=== PATIENT | male | born 1960 | race Caucasian/White ===

== ENCOUNTER 2017-10-27 11:24 | Inpatient (IN) | payer MEDICARE, MEDICAID ==
[~2017-10-27] VITALS: Ht 177.8 cm; Wt 84.7 kg
[~2017-10-27 11:24] MED LIST: GABA-533 PO; TIOT185 IH
[2017-10-27 13:26] VITALS: BP 144/84
[2017-10-27] MEDS ORDERED: LORazepam 2 MG TABLET PO PRN (14:00)
[2017-10-27] MEDS ORDERED: OLANZapine 5 MG RAPDIS TABLET PO PRN (14:00)
[2017-10-27] MEDS ORDERED: CYANOCOBALAMIN 1,000 MCG/ML VIAL IM ONE (14:15)
[2017-10-27] MEDS ORDERED: HydrOXYzine PAMOATE 50 MG CAPSULE PO PRN (14:15)
[2017-10-27] MEDS ORDERED: GuaiFENesin/D-METHORPHAN [SUGAR-FREE] 200-20MG/10 ML SYRUP UDCUP PO PRN (14:15)
[2017-10-27] MEDS ORDERED: LOPERAMIDE HCL 2 MG CAPSULE PO PRN (14:15)
[2017-10-27] MEDS ORDERED: PNEUMOCOCCAL VACCINE POLYVALENT 0.5 ML VIAL [PPSV23] IM ONE (15:15)
[2017-10-27] MEDS ORDERED: ALBU8.5H8 IH (15:48)
[2017-10-27] MEDS ORDERED: FOLI1 PO (15:48)
[2017-10-27] MEDS ORDERED: BUDE180H IH (15:48)
[2017-10-27] MEDS ORDERED: TRIL8 PO (15:48)
[2017-10-27] MEDS ORDERED: THIA100T67 PO (15:48)
[2017-10-27] MEDS ORDERED: ATOR10TA84 PO (15:48)
[2017-10-27] MEDS ORDERED: IPRA4AER IH (15:48)
[2017-10-27] MEDS ORDERED: GABA-531 PO (15:58)
[2017-10-27] MEDS ORDERED: ARIP400S3 IM (16:06)
[2017-10-27 16:10] VITALS: BP 124/99
[2017-10-27] MEDS: THIAMINE HCL 100 MG TABLET PO SCH ×2 (16:15→16:47)
[2017-10-27] MEDS: FOLIC ACID 1 MG TABLET PO SCH (16:15)
[2017-10-27] MEDS: MULTIVITAMINS WITH MINERALS, THERAPEUTIC TABLET PO SCH (16:15)
[2017-10-27] MEDS: DIAZEPAM 10 MG TABLET PO PRN ×2 (16:24→20:03)
[2017-10-27 17:00] VITALS: BP 128/94
[2017-10-27] MEDS: ALBUTEROL SULFATE HFA 90 MCG/PUFF 8 GM INHALER IH PRN ×2 (17:52→21:52)
[2017-10-27 18:00] VITALS: BP 137/82
[2017-10-27 19:00] VITALS: BP 139/85
[2017-10-27] MEDS: ALBUTEROL SULFATE 2.5 MG/0.5 ML NEB SOLUTION NEB PRN (20:15)
[2017-10-27] MEDS: ATORVASTATIN CALCIUM 10 MG TABLET PO SCH (20:26)
[2017-10-27] MEDS: TIOTROPIUM BROMIDE 18 MCG/INH HANDIHALER [5] IH SCH (22:00)
[2017-10-27] MEDS: ZOLPIDEM TARTRATE 10 MG TABLET PO PRN (22:11)
[2017-10-28] VITALS (8 sets, daily range): BP systolic 108–125; BP diastolic 58–84
[2017-10-28] MEDS: ALBUTEROL SULFATE HFA 90 MCG/PUFF 8 GM INHALER IH PRN ×3 (02:43→21:08)
[2017-10-28] MEDS: DIAZEPAM 10 MG TABLET PO PRN ×3 (04:05→18:53)
[2017-10-28 08:31] LABS: BASOPHILS % (AUTO) 0.5 % (0.0-2.0); EOSINOPHILS % (AUTO) 2.8 % (1.0-6.0); HEMATOCRIT 40.1 % (41-53); HEMOGLOBIN 13.7 g/dL (13.5-17.5); LYMPHOCYTES # (AUTO) 1.7 K/uL (1.0-4.8); LYMPHOCYTES % (AUTO) 12.5 % (22.0-44.0); MEAN CORPUSCULAR HEMOGLOBIN 32.1 pg (26.0-34.0); MEAN CORPUSCULAR VOLUME 94 fL (80-100); MONOCYTES # (AUTO) 0.6 K/uL (0.1-1.0); MONOCYTES % (AUTO) 4.3 % (2.0-9.0); NEUTROPHILS # (AUTO) 10.6 K/uL (1.8-7.7); NEUTROPHILS % (AUTO) 79.9 % (40.0-70.0); PLATELET COUNT (AUTO) 417 K/uL (150-450); RED BLOOD CELL COUNT(AUTO) 4.26 MIL/uL (4.50-5.90); RED CELL DISTRIBUTION WIDTH 13.9 % (11.5-14.5)
[2017-10-28] MEDS: FOLIC ACID 1 MG TABLET PO SCH (08:34)
[2017-10-28] MEDS: MULTIVITAMINS WITH MINERALS, THERAPEUTIC TABLET PO SCH (08:34)
[2017-10-28] MEDS: DIAZEPAM 10 MG TABLET PO SCH ×4 (08:34→21:07)
[2017-10-28] MEDS: THIAMINE HCL 100 MG TABLET PO SCH ×2 (08:34→16:11)
[2017-10-28] MEDS: TIOTROPIUM BROMIDE 18 MCG/INH HANDIHALER [5] IH SCH (08:35)
[2017-10-28 08:40] LABS: BILIRUBIN,URINE NEGATIVE (NEGATIVE); GLUCOSE, URINE (UA) NEGATIVE (NEGATIVE); KETONES,URINE TRACE mg/dL (NEGATIVE); LEUKOCYTE ESTERASE ,URINE NEGATIVE (NEGATIVE); NITRATE,URINE NEGATIVE (NEGATIVE); OCCULT BLOOD,URINE NEGATIVE (NEGATIVE); PROTEIN,URINE NEGATIVE (NEGATIVE); UROBILINOGEN,URINE 0.2 mg/dL (<=1.0)
[2017-10-28] MEDS ORDERED: MAGNESIUM HYDROXIDE SUSPENSION 30 ML UDCUP PO PRN (08:45)
[2017-10-28] MEDS ORDERED: ARIPiprazole ER SUSPENSION 400 MG PRE-FILLED DUAL CHAMBER SYRINGE IM ONE (08:45)
[2017-10-28 08:48] LABS: AMPHET/METH SCREEN,URINE NEGATIVE (NEGATIVE); BARBITURATE SCREEN, URINE NEGATIVE (NEGATIVE); BENZODIAZEPINES SCREEN,URINE NEGATIVE (NEGATIVE); CANNABINOID SCREEN,URINE POSITIVE (NEGATIVE); COCAINE SCREEN,URINE NEGATIVE (NEGATIVE); METHADONE SCREEN, URINE NEGATIVE (NEGATIVE); OPIATE SCREEN,URINE NEGATIVE (NEGATIVE)
[2017-10-28] MEDS: NICOTINE 21 MG/24 HOUR PATCH TD SCH (09:00)
[2017-10-28 09:02] LABS: PHENCYCLIDINE SCREEN,URINE NEGATIVE (NEGATIVE)
[2017-10-28 09:03] LABS: APPEARANCE,URINE HAZY (CLEAR)
[2017-10-28] MEDS: GABAPENTIN 400 MG CAPSULE PO SCH ×4 (09:26→21:07)
[2017-10-28 09:48] LABS: ALANINE AMINOTRANSFERASE 38 U/L (12-78); ALBUMIN 2.9 g/dL (3.4-5.0); ALKALINE PHOSPHATASE 98 U/L (46-116); ANION GAP 10 mmol/L (8-16); ASPARTATE AMINOTRANSFERASE 39 U/L (15-37); BILIRUBIN,TOTAL 0.3 mg/dL (0.1-1.0); CALCIUM, TOTAL 8.3 mg/dL (8.8-10.5); CARBON DIOXIDE 25 mmol/L (22-29); CHLORIDE 101 mmol/L (98-107); CHOL/HDL RATIO 2.4 (4.2-7.3); CHOLESTEROL 91 mg/dL (131-200); CREATININE 0.66 mg/dL (0.60-1.30); FREE T4 (FREE THYROXINE) 1.01 ng/dL (0.76-1.46); GLOMERULAR FILTR. RATE CALC > 60 mL/min (>60); GLUCOSE,RANDOM 97 mg/dL (70-110); HDL CHOLESTEROL 38 mg/dL (40-60); LDL CHOL (CALC.) 41 mg/dL (0-130); POTASSIUM 4.2 mmol/L (3.5-5.1); SODIUM SERUM 136 mmol/L (136-145); THYROID STIMULATING HORMONE 0.25 uIU/mL (0.36-3.74); TOTAL PROTEIN, SERUM 7.3 g/dL (6.4-8.2); TRIGLYCERIDES 60 mg/dL (15-150); UREA NITROGEN, BLOOD 8 mg/dL (7-18)
[2017-10-28] MEDS: NAPROXEN 500 MG TABLET PO SCH (16:11)
[2017-10-28] MEDS: PERPHENAZINE 8 MG TABLET PO SCH (21:06)
[2017-10-28] MEDS: ATORVASTATIN CALCIUM 10 MG TABLET PO SCH (21:07)
[2017-10-28] MEDS: PANTOPRAZOLE SODIUM 40 MG DR TABLET PO SCH (21:18)
[2017-10-28] MEDS: ZOLPIDEM TARTRATE 10 MG TABLET PO PRN (21:50)
[2017-10-28] MEDS: ALBUTEROL SULFATE 2.5 MG/0.5 ML NEB SOLUTION NEB PRN (23:49)
[2017-10-29] VITALS (9 sets, daily range): BP systolic 110–124; BP diastolic 66–93
[2017-10-29] MEDS: DIAZEPAM 10 MG TABLET PO PRN (02:21)
[2017-10-29] MEDS: ALBUTEROL SULFATE HFA 90 MCG/PUFF 8 GM INHALER IH PRN ×5 (02:21→22:39)
[2017-10-29] MEDS: NAPROXEN 500 MG TABLET PO SCH ×2 (06:50→16:21)
[2017-10-29] MEDS: DIAZEPAM 10 MG TABLET PO SCH ×4 (08:09→20:07)
[2017-10-29] MEDS: FOLIC ACID 1 MG TABLET PO SCH (08:09)
[2017-10-29] MEDS: MULTIVITAMINS WITH MINERALS, THERAPEUTIC TABLET PO SCH (08:09)
[2017-10-29] MEDS: PANTOPRAZOLE SODIUM 40 MG DR TABLET PO SCH (08:09)
[2017-10-29] MEDS: THIAMINE HCL 100 MG TABLET PO SCH ×2 (08:09→16:22)
[2017-10-29] MEDS: GABAPENTIN 400 MG CAPSULE PO SCH ×4 (08:09→20:07)
[2017-10-29] MEDS: TIOTROPIUM BROMIDE 18 MCG/INH HANDIHALER [5] IH SCH (08:10)
[2017-10-29] MEDS: NICOTINE 21 MG/24 HOUR PATCH TD SCH (08:17)
[2017-10-29 08:44] LABS: BASOPHILS % (AUTO) 0.5 % (0.0-2.0); EOSINOPHILS % (AUTO) 3.7 % (1.0-6.0); HEMATOCRIT 36.9 % (41-53); HEMOGLOBIN 12.4 g/dL (13.5-17.5); LYMPHOCYTES # (AUTO) 1.6 K/uL (1.0-4.8); LYMPHOCYTES % (AUTO) 12.7 % (22.0-44.0); MEAN CORPUSCULAR HEMOGLOBIN 32.1 pg (26.0-34.0); MEAN CORPUSCULAR HGB CONC 33.7 G/dL (31.0-37.0); MEAN CORPUSCULAR VOLUME 95 fL (80-100); MONOCYTES # (AUTO) 0.6 K/uL (0.1-1.0); MONOCYTES % (AUTO) 5.2 % (2.0-9.0); NEUTROPHILS # (AUTO) 9.6 K/uL (1.8-7.7); NEUTROPHILS % (AUTO) 77.9 % (40.0-70.0); PLATELET COUNT (AUTO) 372 K/uL (150-450); RED BLOOD CELL COUNT(AUTO) 3.88 MIL/uL (4.50-5.90); RED CELL DISTRIBUTION WIDTH 13.8 % (11.5-14.5)
[2017-10-29] MEDS: ALBUTEROL SULFATE 2.5 MG/0.5 ML NEB SOLUTION NEB PRN (09:25)
[2017-10-29] MEDS: ATORVASTATIN CALCIUM 10 MG TABLET PO SCH (20:07)
[2017-10-29] MEDS: PERPHENAZINE 8 MG TABLET PO SCH (20:07)
[2017-10-29] MEDS ORDERED: CYCLOBENZAPRINE HCL 10 MG TABLET PO PRN (20:30)
[2017-10-29] MEDS: ZOLPIDEM TARTRATE 10 MG TABLET PO PRN (21:07)
[2017-10-30 01:12] VITALS: BP 123/80
[2017-10-30] MEDS: ALBUTEROL SULFATE 2.5 MG/0.5 ML NEB SOLUTION NEB PRN (01:17)
[2017-10-30] MEDS: ALBUTEROL SULFATE HFA 90 MCG/PUFF 8 GM INHALER IH PRN (03:36)
[2017-10-30] MEDS: DIAZEPAM 10 MG TABLET PO PRN (03:37)
[2017-10-30] MEDS: NAPROXEN 500 MG TABLET PO SCH (06:36)
[2017-10-30] MEDS ORDERED: DIAZEPAM 5 MG TABLET PO PRN (07:00)
[2017-10-30] MEDS: MULTIVITAMINS WITH MINERALS, THERAPEUTIC TABLET PO SCH (08:21)
[2017-10-30] MEDS: FOLIC ACID 1 MG TABLET PO SCH (08:21)
[2017-10-30] MEDS: DIAZEPAM 5 MG TABLET PO SCH ×2 (08:21→12:17)
[2017-10-30] MEDS: NICOTINE 21 MG/24 HOUR PATCH TD SCH (08:22)
[2017-10-30] MEDS: GABAPENTIN 400 MG CAPSULE PO SCH ×2 (08:22→12:17)
[2017-10-30] MEDS: PANTOPRAZOLE SODIUM 40 MG DR TABLET PO SCH (08:22)
[2017-10-30] MEDS: THIAMINE HCL 100 MG TABLET PO SCH (08:22)
[2017-10-30 08:31] VITALS: BP 127/78
[2017-10-30 08:32] VITALS: BP 127/78
[2017-10-30] MEDS: TIOTROPIUM BROMIDE 18 MCG/INH HANDIHALER [5] IH SCH (09:00)
[2017-10-30] MEDS ORDERED: PANT40TA25 PO (09:02)
[2017-10-30] MEDS ORDERED: NAPR-58 PO (09:02)
[2017-10-30] MEDS ORDERED: GABA-533 PO (09:02)
[2017-10-30] MEDS ORDERED: TRIL8 PO (09:06)
[2017-10-30] MEDS ORDERED: UMEC62.5 (13:32)
[2017-10-31] MEDS ORDERED: DIAZEPAM 5 MG TABLET PO PRN (07:00)
== END 2017-10-30 13:10 | disposition home or self-care (01) | DRG 885 ==
LOC: B2S 14:03
PROVIDERS: ADMIT Psychiatry & Neurology Child & Adolescent Psychiatry; ATTEND Psychiatry & Neurology Child & Adolescent Psychiatry
DX: F20.0 Paranoid schizophrenia (principal); F10.239 Alcohol dependence with withdrawal, unspecified; D64.9 Anemia, unspecified; F12.90 Cannabis use, unspecified, uncomplicated; F41.9 Anxiety disorder, unspecified; J44.9 Chronic obstructive pulmonary disease, unspecified; K21.9 Gastro-esophageal reflux disease without esophagitis; F17.200 Nicotine dependence, unspecified, uncomplicated; Z79.899 Other long term (current) drug therapy; Z28.21 Immunization not carried out because of patient refusal
CPT/HCPCS: 80307; 84439; 84443; G0480; J0401; J3420; J3535

== ENCOUNTER 2019-06-09 12:27 | Inpatient (IN) | payer MEDICARE, MEDICAID ==
[~2019-06-09] VITALS: Ht 170.2 cm; Wt 98.0 kg
[~2019-06-09 12:27] MED LIST changes: +ARIP400S3 IM; +NAPR-1025 PO; +PANT40TA25 PO; -TIOT185 IH; +TRIL8 PO; +UMEC62.5
[2019-06-09 13:19] VITALS: BP 150/82
[2019-06-09] MEDS ORDERED: HALOPERIDOL 5 MG TABLET PO PRN (14:00)
[2019-06-09] MEDS ORDERED: PNEUMOCOCCAL VACCINE POLYVALENT 0.5 ML VIAL [PPSV23] IM ONE (14:45)
[2019-06-09 16:05] VITALS: BP 123/88
[2019-06-09] MEDS: LORazepam 2 MG TABLET PO PRN (19:19)
[2019-06-09 22:08] VITALS: BP 113/69
[2019-06-09] MEDS: ALBUTEROL SULFATE HFA 90 MCG/PUFF 8 GM INHALER IH PRN (22:39)
[2019-06-09] MEDS: ZOLPIDEM TARTRATE 10 MG TABLET PO PRN (23:56)
[2019-06-10 00:54] VITALS: BP 136/78
[2019-06-10] MEDS: ALBUTEROL SULFATE HFA 90 MCG/PUFF 8 GM INHALER IH PRN ×3 (05:42→21:02)
[2019-06-10 08:07] LABS: BASOPHILS % (AUTO) 0.6 % (0.0-2.0); EOSINOPHILS % (AUTO) 3.9 % (1.0-6.0); HEMATOCRIT 44.8 % (41-53); MEAN CORPUSCULAR HEMOGLOBIN 33.1 pg (26.0-34.0); MEAN CORPUSCULAR HGB CONC 33.4 G/dL (31.0-37.0); MEAN CORPUSCULAR VOLUME 99 fL (80-100); MONOCYTES # (AUTO) 0.5 K/uL (0.1-1.0); MONOCYTES % (AUTO) 6.4 % (2.0-9.0); NEUTROPHILS # (AUTO) 5.4 K/uL (1.8-7.7); NEUTROPHILS % (AUTO) 65.1 % (40.0-70.0); PLATELET COUNT (AUTO) 309 K/uL (150-450); RED BLOOD CELL COUNT(AUTO) 4.51 MIL/uL (4.50-5.90); RED CELL DISTRIBUTION WIDTH 13.2 % (11.5-14.5)
[2019-06-10 08:09] VITALS: BP 114/77
[2019-06-10] MEDS: NICOTINE 21 MG/24 HOUR PATCH TD SCH (08:46)
[2019-06-10 08:52] LABS: ANION GAP 7 mmol/L (8-16); CARBON DIOXIDE 28 mmol/L (22-29); CHLORIDE 103 mmol/L (98-107); CREATININE 0.86 mg/dL (0.60-1.30); GLUCOSE,RANDOM 92 mg/dL (70-110); POTASSIUM 4.6 mmol/L (3.5-5.1); SODIUM SERUM 138 mmol/L (136-145); UREA NITROGEN, BLOOD 12 mg/dL (7-18)
[2019-06-10 08:53] LABS: ALANINE AMINOTRANSFERASE 71 U/L (12-78); ALBUMIN 3.8 g/dL (3.4-5.0); ALKALINE PHOSPHATASE 94 U/L (46-116); ASPARTATE AMINOTRANSFERASE 49 U/L (15-37); BILIRUBIN,TOTAL 0.4 mg/dL (0.1-1.0); CALCIUM, TOTAL 8.9 mg/dL (8.8-10.5); CHOL/HDL RATIO 2.4 (4.2-7.3); CHOLESTEROL 115 mg/dL (131-200); GLOMERULAR FILTR. RATE CALC > 60 mL/min (>60); HDL CHOLESTEROL 47 mg/dL (40-60); LDL CHOL (CALC.) 53 mg/dL (0-130); TOTAL PROTEIN, SERUM 6.8 g/dL (6.4-8.2); TRIGLYCERIDES 74 mg/dL (15-150)
[2019-06-10] MEDS: LORazepam 2 MG TABLET PO PRN ×2 (10:58→17:52)
[2019-06-10] MEDS: ALBUTEROL SULFATE 2.5 MG/0.5 ML NEB SOLUTION NEB PRN (13:53)
[2019-06-10 16:19] VITALS: BP 107/58
[2019-06-10] MEDS: IPRATROPIUM BROMIDE 0.5 MG/2.5 ML NEB SOLUTION NEB PRN (18:40)
[2019-06-10] MEDS ORDERED: IBUPROFEN 600 MG TABLET PO PRN ×2 (19:00→23:00)
[2019-06-10] MEDS: ZOLPIDEM TARTRATE 10 MG TABLET PO PRN (21:02)
[2019-06-10] MEDS ORDERED: OMEPRAZOLE 20 MG CAPSULE PO PRN (23:00)
[2019-06-10] MEDS ORDERED: DOCUSATE SODIUM 100 MG CAPSULE PO PRN (23:00)
[2019-06-10] MEDS ORDERED: ONDANSETRON HCL 4 MG TABLET PO PRN (23:00)
[2019-06-10] MEDS ORDERED: ACETAMINOPHEN 325 MG TABLET PO PRN (23:00)
[2019-06-10] MEDS ORDERED: BENZOCAINE/MENTHOL LOZENGE MM PRN (23:00)
[2019-06-10] MEDS ORDERED: MAG HYDROX/AL HYDROX/SIMETH ES 30 ML SUSPENSION UDCUP PO PRN (23:00)
[2019-06-10] MEDS ORDERED: MAGNESIUM HYDROXIDE SUSPENSION 30 ML UDCUP PO PRN (23:00)
[2019-06-10] MEDS ORDERED: PETROLATUM,WHITE 28 GM JELLY TP PRN (23:00)
[2019-06-10] MEDS ORDERED: LOPERAMIDE HCL 2 MG CAPSULE PO PRN (23:00)
[2019-06-10] MEDS ORDERED: CloNIDine HCL 0.1 MG TABLET PO PRN (23:00)
[2019-06-10] MEDS ORDERED: BACITRACIN 28.4 GM OINTMENT TP PRN (23:00)
[2019-06-11 00:37] VITALS: BP 112/64
[2019-06-11] MEDS: ALBUTEROL SULFATE 2.5 MG/0.5 ML NEB SOLUTION NEB PRN ×5 (01:22→23:47)
[2019-06-11] MEDS: IPRATROPIUM BROMIDE 0.5 MG/2.5 ML NEB SOLUTION NEB PRN ×4 (01:22→23:47)
[2019-06-11] MEDS: ALBUTEROL SULFATE HFA 90 MCG/PUFF 8 GM INHALER IH PRN ×3 (01:36→15:46)
[2019-06-11 08:03] VITALS: BP 124/77
[2019-06-11] MEDS: NICOTINE 21 MG/24 HOUR PATCH TD SCH (08:09)
[2019-06-11] MEDS: GABAPENTIN 400 MG CAPSULE PO SCH ×3 (08:09→17:04)
[2019-06-11] MEDS: PERPHENAZINE 8 MG TABLET PO SCH ×2 (08:10→17:05)
[2019-06-11 16:05] VITALS: BP 131/74
[2019-06-11] MEDS: LORazepam 2 MG TABLET PO PRN (18:46)
[2019-06-12] MEDS: ALBUTEROL SULFATE HFA 90 MCG/PUFF 8 GM INHALER IH PRN ×3 (00:01→08:20)
[2019-06-12 00:37] VITALS: BP 142/91
[2019-06-12] MEDS: IPRATROPIUM BROMIDE 0.5 MG/2.5 ML NEB SOLUTION NEB PRN ×2 (03:47→12:22)
[2019-06-12] MEDS: ALBUTEROL SULFATE 2.5 MG/0.5 ML NEB SOLUTION NEB PRN ×2 (03:47→08:14)
[2019-06-12 04:00] VITALS: BP 138/88
[2019-06-12] MEDS: NICOTINE 21 MG/24 HOUR PATCH TD SCH (08:13)
[2019-06-12] MEDS: GABAPENTIN 400 MG CAPSULE PO SCH (08:13)
[2019-06-12 08:17] VITALS: BP 131/88
[2019-06-12] MEDS: PERPHENAZINE 8 MG TABLET PO SCH (08:17)
[2019-06-12] MEDS ORDERED: GABA800T9 PO (09:37)
[2019-06-12] MEDS ORDERED: TRIL8 PO (09:37)
== END 2019-06-12 13:41 | disposition home or self-care (01) | DRG 885 ==
LOC: B2S 14:14
PROVIDERS: ADMIT Psychiatry & Neurology Psychiatry; ATTEND Psychiatry & Neurology Psychiatry
DX: F20.0 Paranoid schizophrenia (principal); G47.00 Insomnia, unspecified; K59.00 Constipation, unspecified; F41.9 Anxiety disorder, unspecified
CPT/HCPCS: 87081; J3535

== ENCOUNTER 2019-07-14 21:07 | Emergency (ER) | payer OTHER ==
[~2019-07-14] VITALS: Ht 177.8 cm; Wt 104.5 kg
[~2019-07-14 21:07] MED LIST changes: -ARIP400S3 IM; -GABA-533 PO; +GABA800T9 PO; -NAPR-1025 PO; -PANT40TA25 PO; -UMEC62.5
[2019-07-14] MEDS ORDERED: ALBU8HFA PO (21:32)
[2019-07-14] MEDS ORDERED: FOLI0.4T14 PO (21:32)
[2019-07-14] MEDS ORDERED: FLUT1BLS3 PO (21:32)
[2019-07-14] MEDS ORDERED: ATOR10TA84 PO (21:32)
[2019-07-14] MEDS ORDERED: PANT40TA25 PO (21:32)
[2019-07-14 22:32] LABS: BASOPHILS % (AUTO) 0.8 % (0.0-2.0); EOSINOPHILS % (AUTO) 3.3 % (1.0-6.0); HEMATOCRIT 43.5 % (41-53); HEMOGLOBIN 14.6 g/dL (13.5-17.5); LYMPHOCYTES # (AUTO) 1.6 K/uL (1.0-4.8); LYMPHOCYTES % (AUTO) 20.3 % (22.0-44.0); MEAN CORPUSCULAR HEMOGLOBIN 33.3 pg (26.0-34.0); MEAN CORPUSCULAR HGB CONC 33.6 G/dL (31.0-37.0); MEAN CORPUSCULAR VOLUME 99 fL (80-100); MONOCYTES # (AUTO) 0.7 K/uL (0.1-1.0); MONOCYTES % (AUTO) 8.1 % (2.0-9.0); NEUTROPHILS # (AUTO) 5.5 K/uL (1.8-7.7); NEUTROPHILS % (AUTO) 67.5 % (40.0-70.0); PLATELET COUNT (AUTO) 316 K/uL (150-450); RED BLOOD CELL COUNT(AUTO) 4.39 MIL/uL (4.50-5.90); RED CELL DISTRIBUTION WIDTH 13.3 % (11.5-14.5)
[2019-07-14 22:35] LABS: ANION GAP 9 mmol/L (8-16); CARBON DIOXIDE 28 mmol/L (22-29); CHLORIDE 99 mmol/L (98-107); CREATININE 0.65 mg/dL (0.60-1.30); GLOMERULAR FILTR. RATE CALC > 60 mL/min (>60); GLUCOSE,RANDOM 87 mg/dL (70-110); POTASSIUM 4.3 mmol/L (3.5-5.1); SODIUM SERUM 136 mmol/L (136-145); UREA NITROGEN, BLOOD 8 mg/dL (7-18)
[2019-07-14 22:57] LABS: ALANINE AMINOTRANSFERASE 40 U/L (12-78); ALBUMIN 4.1 g/dL (3.4-5.0); ALKALINE PHOSPHATASE 90 U/L (46-116); ASPARTATE AMINOTRANSFERASE 36 U/L (15-37); BILIRUBIN,TOTAL 0.7 mg/dL (0.1-1.0); CREATINE KINASE, TOTAL ONLY 348 U/L (39-308); TOTAL PROTEIN, SERUM 7.8 g/dL (6.4-8.2)
[2019-07-15 02:01] VITALS: BP 138/84
== END 2019-07-15 02:28 | disposition home or self-care (01) ==
LOC: EMS 21:09
DX: K11.7 Disturbances of salivary secretion (principal); R07.81 Pleurodynia; F17.210 Nicotine dependence, cigarettes, uncomplicated; J45.909 Unspecified asthma, uncomplicated; F20.9 Schizophrenia, unspecified; F12.90 Cannabis use, unspecified, uncomplicated; Z88.8 Allergy status to other drugs, medicaments and biological substances
CPT/HCPCS: 99406